=== PATIENT | female | born 1960 | race Caucasian/White ===

== ENCOUNTER 2017-09-10 15:51 | Day surgery (SDC) | payer BC ==
[~2017-09-10 15:51] MED LIST: ROCURONIUM 50 MG INJ
[2017-09-10] MEDS: HYDROCODONE/APAP (10/325) TAB PO (16:30)
[2017-09-10] MEDS ORDERED: POLYMYXIN/BACITRACIN 1L IRRIG (17:47)
[2017-09-10] MEDS ORDERED: MIDAZOLAM 1 MG/ML 2 ML INJ (18:16)
[2017-09-10] MEDS ORDERED: FENTAnyl 50 MCG/ML VIAL ×2 (18:16→20:25)
[2017-09-10] MEDS ORDERED: ROPIVACAINE 0.5 % 30 ML VIAL (18:16)
[2017-09-10] MEDS ORDERED: CEFAZOLIN 1 GM INJ (19:18)
[2017-09-10] MEDS ORDERED: LIDOCAINE 100 MG SYRINGE (19:18)
[2017-09-10] MEDS ORDERED: ROCURONIUM 50 MG INJ (19:18)
[2017-09-10] MEDS ORDERED: SUCCINYLCHOLINE CHLORIDE 100 MG/5 ML SYG IV (19:18)
[2017-09-10] MEDS ORDERED: SUGAMMADEX SODIUM 200 MG/2 ML VIAL IV (19:18)
[2017-09-10] MEDS ORDERED: PROPOFOL 20 ML (19:18)
[2017-09-10] MEDS: POLYMYXIN/BACITRACIN 1L IRRIG (19:19)
[2017-09-10] MEDS ORDERED: GELATIN SIZE 100 SPONGE (20:46)
[2017-09-10] MEDS ORDERED: THROMBIN 5000 UNIT VIAL (20:47)
[2017-09-10] MEDS ORDERED: ALBUTEROL 0.083% (NEB) 2.5 MG/3 ML AMP HHN (22:00)
[2017-09-10] MEDS ORDERED: METOCLOPRAMIDE 10 MG INJ IV (22:00)
[2017-09-10] MEDS ORDERED: FENTAnyl 50 MCG/ML VIAL IV (22:00)
[2017-09-10] MEDS ORDERED: DIPHENHYDRAMINE 50 MG INJ IV (22:00)
[2017-09-10] MEDS ORDERED: ONDANSETRON 4 MG INJ IV (22:00)
[2017-09-10] MEDS ORDERED: HYDROmorphONE 1 MG/5 ML IV SYRINGE IV ×2 (22:00)
[2017-09-10] MEDS: MEPERIDINE 25 MG INJ IV (22:01)
[2017-09-10] MEDS: HYDROmorphONE 1 MG/5 ML IV SYRINGE IV ×4 (22:02→22:49)
[2017-09-10] MEDS: FENTAnyl 50 MCG/ML VIAL IV ×4 (22:02→22:50)
[2017-09-10] MEDS: OXYCODONE/ACETAMINOPHEN (5/325) TAB PO (22:24)
== END 2017-09-11 00:10 | disposition home or self-care (01) ==
LOC: SDS 09-11 00:10
DX: M13.871 Other specified arthritis, right ankle and foot (principal); M21.41 Flat foot [pes planus] (acquired), right foot; I10 Essential (primary) hypertension; E66.9 Obesity, unspecified; Z68.31 Body mass index [BMI] 31.0-31.9, adult
CPT/HCPCS: 28740; 73630; 84703